=== PATIENT | male | born 1955 | race Caucasian/White ===

== ENCOUNTER 2022-08-11 11:12 | Outpatient (REF) | payer SELFPAY ==
[2022-08-11 11:31] LABS: MANUAL DIFF FLAG NO
[2022-08-11 11:34] LABS: Basophils Percent Auto 0.3 % (0-2); Eosinophils Absolute Auto 0.1 X10*3/uL (0.0-0.4); Eosinophils Percent Auto 1.2 % (0-4); Hemoglobin 15.4 g/dl (14.0-18.0); Imm Gran Abs Auto 0.04 X10*3/uL (0.00-0.03); Imm Gran Pct Auto 0.3 % (0.0-0.4); Lymphocytes Absolute Auto 1.5 X10*3/uL (1.2-4.9); Lymphocytes Percent Auto 12.5 % (20-40); Mean Corpuscular HGB Conc 33.5 g/dl (31.0-36.0); Mean Corpuscular Hemoglobin 30.9 pg (27.0-33.0); Mean Corpuscular Volume 92.4 fL (80.0-98.0); Mean Platelet Volume 11.3 fL (9.4-12.4); Monocytes Absolute Auto 1.1 X10*3/uL (0.1-1.2); Monocytes Percent Auto 9.6 % (2-11); Neutrophils Absolute Auto 9.1 x10*3/uL (2.0-8.3); Neutrophils Percent Auto 76.1 % (45-73); Platelet Count 295 X10*3/uL (160-400); Red Blood Count 4.98 X10*6/uL (4.60-5.80); Red Cell Distribution Width 12.5 % (11.0-16.0); White Blood Count 11.9 X10*3/uL (4.8-10.8)
[2022-08-11 11:52] LABS: Estimated Average Glucose 103 mg/dL; Hemoglobin A1c % 5.2 %
[2022-08-11 11:56] LABS: Alanine Aminotransferase 19 U/L (0-40); Albumin Level 4.4 g/dL (3.5-5.0); Alkaline Phosphatase 76 U/L (39-117); Anion Gap 17 (12-20); Aspartate Amino Transferase 23 U/L (5-37); Bilirubin Total 0.5 mg/dL (0.0-1.0); Blood Urea Nitrogen 14 mg/dL (9-16); Calcium 9.8 mg/dL (8.4-10.2); Carbon Dioxide 24 mmol/L (22-29); Chloride 101 mmol/L (96-108); Cholesterol 209 mg/dL; Estimated Glomerular Filt Rate > 60; Glucose Fasting 111 mg/dL (60-99); HDL Cholesterol 49 mg/dL; LDL Cholesterol Calculated 147 mg/dl; Potassium 4.7 mmol/L (3.3-5.1); Sodium 137 mmol/L (135-145); Total Protein 7.3 g/dL (6.5-8.0); Triglycerides 65 mg/dL
[2022-08-11 12:08] LABS: PSA,Total (Free>4and<10) 0.24 ng/mL (0.00-4.00)
[2022-08-11 12:40] LABS: Appearance Urine Clear; Color Urine Yellow; Glucose Urine UA Negative (Negative); Leukocyte Esterase Urine Negative (Negative); Nitrite Urine Negative (Negative); PH 5.5 (5.0-9.0); Urine Blood Negative (Negative); Urine Ketones Negative (Negative); Urine Protein Negative (Neg-Trace)
[2022-08-11 12:47] LABS: Creatinine Urine 128.86 mg/dL; Microalbumin Urine < 5.0 mg/L
[2022-08-11 13:23] LABS: RBC Urine 0-2 /HPF (0-2); Squamous Epithelial Cell Urine 0-2 /HPF (0-2); WBC Urine 0-5 /HPF (0-5)
[2022-08-11 13:24] LABS: Bacteria Urine None Seen (None Seen); Hyaline Casts Urine 0-2 /LPF (0-2)
== END 2022-08-11 11:13 | disposition home or self-care (01) ==
LOC: HO.LNP 11:12
PROVIDERS: Visit Provider Internal Medicine
DX: Z00.00 Encounter for general adult medical examination without abnormal findings (principal); R73.03 Prediabetes; Z12.5 Encounter for screening for malignant neoplasm of prostate
CPT/HCPCS: 80053; 80061; 81001; 82043; 83036; 84153; 85025

== ENCOUNTER 2023-08-17 10:35 | Outpatient (REF) | payer SELFPAY ==
[2023-08-17 10:41] LABS: MANUAL DIFF FLAG NO
[2023-08-17 11:01] LABS: Basophils Percent Auto 0.6 % (0-2); Eosinophils Absolute Auto 0.1 X10*3/uL (0.0-0.4); Eosinophils Percent Auto 1.9 % (0-4); Hematocrit 46.7 % (42.0-52.0); Hemoglobin 15.6 g/dl (14.0-18.0); Imm Gran Abs Auto 0.02 X10*3/uL (0.00-0.03); Imm Gran Pct Auto 0.3 % (0.0-0.4); Lymphocytes Absolute Auto 1.8 X10*3/uL (1.2-4.9); Lymphocytes Percent Auto 26.5 % (20-40); Mean Corpuscular HGB Conc 33.4 g/dl (31.0-36.0); Mean Corpuscular Hemoglobin 31.2 pg (27.0-33.0); Mean Corpuscular Volume 93.4 fL (80.0-98.0); Monocytes Absolute Auto 0.8 X10*3/uL (0.1-1.2); Monocytes Percent Auto 11.1 % (2-11); Neutrophils Absolute Auto 4.1 x10*3/uL (2.0-8.3); Neutrophils Percent Auto 59.6 % (45-73); Platelet Count 232 X10*3/uL (160-400); White Blood Count 6.9 X10*3/uL (4.8-10.8)
[2023-08-17 11:11] LABS: Appearance Urine Clear; Color Urine Yellow; Glucose Urine UA Negative (Negative); Leukocyte Esterase Urine Negative (Negative); Nitrite Urine Negative (Negative); PH 5.5 (5.0-9.0); Specific Gravity - Urine 1.015 (1.005-1.025); Urine Blood Negative (Negative); Urine Ketones Negative (Negative); Urine Protein Negative (Neg-Trace)
[2023-08-17 11:15] LABS: Estimated Average Glucose 108 mg/dL; Hemoglobin A1c % 5.4 % (<6.0)
[2023-08-17 11:17] LABS: Bacteria Urine None Seen (None Seen); Hyaline Casts Urine 0-2 /LPF (0-2); RBC Urine 0-2 /HPF (0-2); Squamous Epithelial Cell Urine 0-2 /HPF (0-2); WBC Urine 0-5 /HPF (0-5)
[2023-08-17 11:45] LABS: Alanine Aminotransferase 18 U/L (0-40); Albumin Level 4.4 g/dL (3.5-5.0); Alkaline Phosphatase 68 U/L (39-117); Anion Gap 12 (12-20); Aspartate Amino Transferase 25 U/L (5-37); Bilirubin Total 0.7 mg/dL (0.0-1.0); Blood Urea Nitrogen 15 mg/dL (9-16); Calcium 9.5 mg/dL (8.4-10.2); Carbon Dioxide 27 mmol/L (22-29); Chloride 104 mmol/L (96-108); Cholesterol 212 mg/dL (<200); Estimated Glomerular Filt Rate > 60; Glucose Random 110 mg/dL (60-115); HDL Cholesterol 58 mg/dL (>40); LDL Cholesterol Calculated 140 mg/dL (<100); Potassium 4.5 mmol/L (3.3-5.1); Sodium 138 mmol/L (135-145); Total Protein 7.4 g/dL (6.5-8.0); Triglycerides 70 mg/dL (<150)
[2023-08-17 11:46] LABS: PSA,Total (Free>4and<10) 0.16 ng/mL (0.00-4.00)
[2023-08-17 12:07] LABS: Creatinine Urine 106.62 mg/dL; Microalbumin Urine < 5.0 mg/L
== END 2023-08-17 10:36 | disposition home or self-care (01) ==
LOC: HO.LNP 10:35
PROVIDERS: Visit Provider Internal Medicine
DX: Z00.00 Encounter for general adult medical examination without abnormal findings (principal); R73.03 Prediabetes; Z12.5 Encounter for screening for malignant neoplasm of prostate
CPT/HCPCS: 80053; 80061; 81001; 82043; 82570; 83036; 84153; 85025

== ENCOUNTER 2024-11-15 11:37 | Outpatient (REF) | payer SELFPAY ==
[2024-11-15 11:48] LABS: MANUAL DIFF FLAG NO
[2024-11-15 12:00] LABS: Basophils Percent Auto 0.5 % (0-2); Eosinophils Absolute Auto 0.2 X10*3/uL (0.0-0.4); Eosinophils Percent Auto 1.8 % (0-4); Hematocrit 47.2 % (42.0-52.0); Hemoglobin 15.3 g/dl (14.0-18.0); Imm Gran Abs Auto 0.04 X10*3/uL (0.00-0.03); Imm Gran Pct Auto 0.5 % (0.0-0.4); Lymphocytes Absolute Auto 1.7 X10*3/uL (1.2-4.9); Lymphocytes Percent Auto 20.3 % (20-40); Mean Corpuscular HGB Conc 32.4 g/dl (31.0-36.0); Mean Corpuscular Hemoglobin 30.7 pg (27.0-33.0); Mean Corpuscular Volume 94.6 fL (80.0-98.0); Mean Platelet Volume 10.9 fL (9.4-12.4); Monocytes Absolute Auto 0.9 X10*3/uL (0.1-1.2); Neutrophils Absolute Auto 5.7 x10*3/uL (2.0-8.3); Neutrophils Percent Auto 66.9 % (45-73); Platelet Count 251 X10*3/uL (160-400); Red Blood Count 4.99 X10*6/uL (4.60-5.80); Red Cell Distribution Width 13.2 % (11.0-16.0); White Blood Count 8.5 X10*3/uL (4.8-10.8)
[2024-11-15 12:04] LABS: Appearance Urine Clear; Color Urine Yellow; Glucose Urine UA Negative (Negative); Leukocyte Esterase Urine Negative (Negative); Nitrite Urine Negative (Negative); PH 5.5 (5.0-9.0); Urine Blood Negative (Negative); Urine Ketones Negative (Negative); Urine Protein Negative (Neg-Trace)
[2024-11-15 12:12] LABS: Bacteria Urine None Seen (None Seen); Hyaline Casts Urine 0-2 /LPF (0-2); RBC Urine 0-2 /HPF (0-2); Squamous Epithelial Cell Urine 0-2 /HPF (0-2); WBC Urine 0-5 /HPF (0-5)
[2024-11-15 12:22] LABS: Estimated Average Glucose 111 mg/dL; Hemoglobin A1C 146.2566 umol/L; Hemoglobin A1c % 5.5 % (<6.0)
[2024-11-15 12:38] LABS: Alanine Aminotransferase 29 U/L (0-40); Albumin Level 4.2 g/dL (3.5-5.0); Alkaline Phosphatase 67 U/L (39-117); Anion Gap 12 (12-20); Aspartate Amino Transferase 31 U/L (5-37); Bilirubin Total 0.6 mg/dL (0.0-1.0); Blood Urea Nitrogen 17 mg/dL (9-16); Calcium 9.2 mg/dL (8.4-10.2); Carbon Dioxide 27 mmol/L (22-29); Chloride 106 mmol/L (96-108); Cholesterol 181 mg/dL (<200); Estimated Glomerular Filt Rate > 60; Glucose Fasting 113 mg/dL (60-99); HDL Cholesterol 59 mg/dL (>40); LDL Cholesterol Calculated 106 mg/dL (<100); Potassium 4.7 mmol/L (3.3-5.1); Sodium 140 mmol/L (135-145); Total Protein 7.5 g/dL (6.5-8.0); Triglycerides 84 mg/dL (<150)
[2024-11-15 12:39] LABS: PSA,Total (Free>4and<10) 0.33 ng/mL (0.00-4.00)
--- OUTSIDE RECORDS SUMMARY | 2024-11-15 12:51 | XMS_ITS | Patient Health Record ---
Author Organization David Petersen MD Address [address] [place], [place] [id number] Care Team Providers Care Bariatric Surgeon Name Role Phone David Petersen Primary Care Provider Allergies No Known Allergies Results Component Value Reference Range Notes Comprehensive [place]. Panel Fa st (Not yet reviewed by provider) Interpretation: Performing Lab:[facility], [address] [place] [phone] Notes/Report: Sodium 140 135-145 mmol/L Potassium 4.7 3.3-5.1 mmol/L Chloride 106 96-108 mmol/L Carbon Dioxide 27 22-29 mmol/L Anion Gap 12 12-20 Blood Urea Nitrogen 17 9-16 mg/dL Creatinine 0.88 0.5-1.4 mg/dL Estimated Glomerular Filt Rate > 60 Chronic Kidney Disease: Estimated GFR < 60 mL/min/1.73m2 Severe Kidney Disease: Estimated GFR < 15 mL/min/1.73m2 Glucose Fasting 113 60-99 mg/dL A fasting glucose from 100-125 mg/dl is considered impaired (pre-diabetes). Calcium 9.2 8.4-10.2 mg/dL Bilirubin Total 0.6 0.0-1.0 mg/dL Aspartate Amino Transferase 31 5-37 U/L Alanine Aminotransferase 29 0-40 U/L Total Protein 7.5 6.5-8.0 g/dL Albumin Level 4.2 3.5-5.0 g/dL Alkaline Phosphatase 67 39-117 U/L Complete Blood Count Auto Di ff Reviewed date:11/15/2024 12:37:02 PM Interpretation: Performing Lab:[facility], [address] [place] [phone] Notes/Report: White Blood Count 8.5 4.8-10.8 X10*3/uL Red Blood Count 4.99 4.60-5.80 X10*6/uL Hemoglobin 15.3 14.0-18.0 g/dl Hematocrit 47.2 42.0-52.0 % Mean Corpuscular Volume 94.6 80.0-98.0 fL Mean Corpuscular Hemoglobin 30.7 27.0-33.0 pg Mean Corpuscular HGB Conc 32.4 31.0-36.0 g/dl Red Cell Distribution Width 13.2 11.0-16.0 % Platelet Count 251 160-400 X10*3/uL Mean Platelet Volume 10.9 9.4-12.4 fL Neutrophils Percent Auto 66.9 45-73 % Imm Gran Pct Auto 0.5 0.0-0.4 % Lymphocytes Percent Auto 20.3 20-40 % Monocytes Percent Auto 10.0 2-11 % Eosinophils Percent Auto 1.8 0-4 % Basophils Percent Auto 0.5 0-2 % NRBC Pct Auto 0.0 0.0-0.2 /100WBC Neutrophils Absolute Auto 5.7 2.0-8.3 x10*3/u L Imm Gran Abs Auto 0.04 0.00-0.03 X10*3/uL Lymphocytes Absolute Auto 1.7 1.2-4.9 X10*3/u L Monocytes Absolute Auto 0.9 0.1-1.2 X10*3/uL Eosinophils Absolute Auto 0.2 0.0-0.4 X10*3/u L Basophils Absolute Auto 0.0 0.0-0.2 X10*3/uL NRBC Abs Auto 0.000 0.0-0.012 X10*3/uL Lipid Panel Reviewed date:11/15/2024 12:44:18 PM Interpretation: Performing Lab:[facility], [address] [place] [phone] Notes/Report: Triglycerides 84 <150 mg/dL Desirable Triglyceride: less than 150 mg/dL Borderline High Triglyceride 150-199 mg/dL High Triglyceride: 200-499 mg/dL Very High Triglyceride: greater than or equal to 5OO mg/dL Cholesterol 181 <200 mg/dL Desirable Cholesterol: less than 200 mg/dL Borderline High Cholesterol: 200-239 mg/dL High Cholesterol: greater than 239 mg/dL LDL Cholesterol Calculated 106 <100 mg/dL Desirable LDL: less than 100 mg/dL Near Optimal/Above Optimal LDL: 110-129 mg/dL Borderline High LDL: 130-159 mg/dL High LDL: 160-189 mg/dL Very High LDL: greater than or equal to 190 mg/dL HDL Cholesterol 59 >40 mg/dL Desirable HDL: greater than 40 mg/dL Note: This HDL assay may give artificially low results in patients with liver disease. PSA,Total (Free>4and<10) Reviewed date:11/15/2024 12:44:09 PM Interpretation: Performing Lab:[address] [phone] Notes/Report: PSA,Total (Free>4and<10) 0.33 0.00-4.00 ng/mL A Free PSA was not performed: The percentage of Free PSA can be used to enhance the differentiation of prostate cancer from benign prostatic disease in subjects whose PSA levels are between 4.0 and 10.0 ng/mL. For subjects whose PSA levels are below 4.0 or above 10.0 ng/mL, the risk of prostate cancer is determined on the basis of the PSA alone. Therefore the % Free PSA is recommended only for those subjects whose PSA levels are between 4.0 and 10.0 ng/mL. PSA methodology: Chavez Alinity i Chemiluminescent Microparticle Immunoassay (CMIA) Hemoglobin A1c Reviewed date:11/15/2024 12:36:44 PM Interpretation: Performing Lab:[address] [phone] Notes/Report: Hemoglobin A1c % 5.5 <6.0 % Hemoglobin A1C Reference Range Adults: 4.8 - 6.0 % Non diabetic: < 6.0 % Goal: < 7.0 % Additional Action Suggested: > 8.0 % Note: Hemoglobin A1c results are invalid for patients with abnormal amounts of HbF. Blood transfusions may impact the HbA1c concentration in the patient sample. Estimated Average Glucose 111 eAG = Estimated average glucose which is %A1C expressed as average glucose, using the formula of the X9T-Swjfczi Average Glucose study (ADAG), Diabetes Care, Vol.31,#8, Apr. 2007 UA ClnCatch+Micro w/rflx Cul t Reviewed date:11/15/2024 12:37:32 PM Interpretation: Performing Lab:[facility], [address] [place] [address], [place] [phone] Notes/Report: Urine, Clean Catch Color Urine Yellow Appearance Urine Clear PH 5.5 5.0-9.0 Glucose Urine UA Negative Negative mg/dL Urine Blood Negative Negative Specific [place] - Urine 1.020 1.005-1.025 Urine Protein Negative Neg-Trace mg/dL Urine Ketones Negative Negative mg/dL Nitrite Urine Negative Negative Leukocyte Esterase Urine Negative Negative RBC Urine 0-2 0-2 /HPF WBC Urine 0-5 0-5 /HPF Squamous Epithelial Cell Urine 0-2 0-2 /HPF Bacteria Urine None Seen None Seen Hyaline Casts Urine 0-2 0-2 /LPF Reason For Referral No Information Medications Medication SIG (Take, Route, Fr equency, Duration) Notes Start Date End Date Status Diflucan 150 MG 1 tablet Orally once a day for 10 day(s) 12/05/2021 Not-Taking Immunizations Vaccine Route Administration Date Status Comme nts Fluarix Quadrivalent IM Intramuscular 11/03/2019 Administe red SARS-COV-2 Pfizer Unknown 11/21/2020 Administered SARS-COV-2 Pfizer Unknown 12/12/2020 Administered SARS-COV-2 Pfizer Unknown 07/04/2021 Administered Fluarix Quadrivalent Unknown 09/11/2021 Administered Influenza High Dose Unknown 07/23/2022 Administered DECLINED, FLU Unknown 06/26/2014 Refused Flu Vaccine Unknown 06/29/2015 Refused Flu Vaccine Unknown 07/23/2015 Refused Flu Vaccine Unknown 08/05/2016 Refused Fluarix Quadrivalent Unknown 08/24/2017 Refused TDaP Unknown 08/31/2017 Refused PPSV23 (Pnemovax) Unknown 08/31/2017 Refused PPSV23 (Pnemovax) Unknown 01/17/2019 Refused Social History Tobacco Use: Social History Observation Description Date Details (start date - stop date) Former Smoker NA - NA Tobacco Use/Smoking Question Answer Notes Patient is a former smoker How long has it been since y ou last smoked? > 10 years Additional Findings: Tobacco Non-User Cu rrent non-smoker, currently using no form of tobacco Alcohol Screen Question Answer Notes Did you have a drink contain ing alcohol in the past year? Yes How often did you have a dri nk containing alcohol in the past year? Monthly or less (1 point) How many drinks did you have on a typical day when you were drinking in the past year? 1 or 2 drinks (0 point) How often did you have 6 or more drinks on one occasion in the past year? 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 Panel Fast 5 Microalbumin, Random 11/15/2024 Next Appt Details Provider Name:David Villafana ieluis, 11/21/2024 10:30:00 AM, [address] [place] [address], Suite [facility], [place], [place], [phone], Insurance Providers Payer Name Payer Address Payer Phone Subscriber Number Group Number Insured Name Patient Relationship to Insured Coverage Start Date Coverage End Date [employer] - [employer] [address] [address] [place] [address] [id number] Nathaniel Minaya Self - patient is the insured [facility] [employer] FORMERLY [facility], [facility] CLAIM [facility] [address] [place] [address] [id number] Nathaniel Minaya Self - patient is the insured Medical (General) History Medical History History ICD Code still with autographia still refuses colonoscopy ; colonoscopy done 10/17/15 - repeat 1 year (Dr. Dulce Maria Barajas)done in 2016 with sessile. Colonoscopy 05/14/22 needs repeat colonoscopy in 3 year had a sessile polyp had colonoscopy 11/06/16 repea t 5 years had tubular adenoma 30 mm sessile high grade dysplasia 2021. doctor wants repeat in 6 . colonoscopy 05/14/22 repeat in one year Due for Carotid US but refuses (01/17/19)
--- OUTSIDE RECORDS SUMMARY | 2024-11-15 12:52 | XMS_ITS ---
Author Organization David Petersen MD Address [address] [place] [phone] Care Team Providers Care Warehouse Picker Name Role Phone David Petersen Primary Care Provider REASON FOR VISIT follow up appt Encounters Encounter Location Date Provider Diagnosis David Petersen MD [address] [place] [address] [place] [phone] 11/17/2023 David Petersen Plan Of Treatment Next Appt Details Provider Name:David Villafana ier, 11/21/2024 10:30:00 AM, [address] [facility], Suite [facility], [place], [place], [phone], Progress Notes * Nathaniel SCALESDOB:1955 (69 yo M)Acc No.[id number]:11/17/2023 Progress Notes Patient:?Nathaniel SCALES Provider:?David Petersen MD :1955???Age:68 Y???Sex:Male Haseeb e:11/17/2023 Address:[address] [place] [address] Subjective: * Chief Complaints: * ???1. Follow up appt. * Medical History:? Objective: * Vitals:? Assessment: Plan: * Treatment: * * The named appointment provid er may or may not be the originator of this progress note, and it is not deemed complete until electronically signed by the appointment provider. Sign off status: Pending * Provider:?David Petersen MD Date:?0 11/17/2023 Generated for Agustina elliott/Han/Rachel on:?11/15/2024 12:51 PM EST
--- OUTSIDE RECORDS SUMMARY | 2024-11-15 12:52 | XMS_ITS ---
Author Organization David Petersen MD Address [address] [place], [place] [phone] Care Team Providers Care Wharf Tender Head Name Role Phone David Petersen Primary Care Provider [phone] Results Component Value Reference Range Notes Comprehensive [place]. Panel Fa st (Not yet reviewed by provider) Interpretation: Performing Lab:[facility], [address] [place] [phone] Notes/Report: Sodium 140 135-145 mmol/L Potassium 4.7 [...] ff Reviewed date:11/15/2024 12:37:02 PM Interpretation: Performing Lab:[facility], [address] [place] [phone] Notes/Report: White Blood Count 8.5 4.8-10.8 X10*3/uL [...] Panel Reviewed date:11/15/2024 12:44:18 PM Interpretation: Performing Lab:[facility], [address] [place] [phone] Notes/Report: Triglycerides 84 <150 mg/dL Desirable Triglyceride: [...] (Free>4and<10) Reviewed date:11/15/2024 12:44:09 PM Interpretation: Performing Lab:[address] [phone] Notes/Report: PSA,Total (Free>4and<10) 0.33 0.00-4.00 ng/mL A [...] A1c Reviewed date:11/15/2024 12:36:44 PM Interpretation: Performing Lab:[address] [phone] Notes/Report: Hemoglobin A1c % 5.5 <6.0 % [...] average glucose, using the formula of the L7M-Ozdatsb Average Glucose study (ADAG), Diabetes Care, Vol.31,#8, Apr. 2007 UA ClnCatch+Micro w/rflx Cul t Reviewed date:11/15/2024 12:37:32 PM Interpretation: Performing Lab:[facility], [address] [place] [phone] Notes/Report: Urine, Clean Catch Color Urine Yellow Appearance Urine Clear PH 5.5 5.0-9.0 Glucose Urine UA Negative Negative mg/dL Urine Blood Negative Negative Specific [place] - Urine 1.020 1.005-1.025 Urine Protein Negative Neg-Trace mg/dL Urine Ketones Negative Negative mg/dL Nitrite Urine Negative Negative Leukocyte Esterase Urine Negative Negative RBC Urine 0-2 0-2 /HPF WBC Urine 0-5 0-5 /HPF Squamous Epithelial Cell Urine 0-2 0-2 /HPF Bacteria Urine None Seen None Seen Hyaline Casts Urine 0-2 0-2 /LPF REASON FOR VISIT yearly fasting labs Encounters Encounter Location Date Provider Diagnosis David Petersen MD [address] [place] [phone] 11/15/2024 David Petersen Blood tests for routine general physical examination Z00.00 and Prediabetes R73.03 Assessments Encounter Date Diagnosis (ICD Code) Assessment Notes Treatment Notes Treatment Clinical Notes Section Notes 11/15/2024 Blood tests for routine general physical examination (ICD-10 - Z00.00) 11/15/2024 Prediabetes (ICD-10 - R73.03) Plan Of Treatment Pending Test Test Name Order Date Comprehensive [place]. Panel Fast Microalbumin, Random 11/15/2024 Next Appt Details Provider Name:David Villafana ier, 11/21/2024 10:30:00 AM, [address] [place] [address], Suite [facility], [place], [place], [phone], Progress Notes * SCALESNathanielDOB:1955 (69 yo M)Acc No.[id number]:11/15/2024 Progress Note Patient:?Nathaniel SCALES Provider:?David Petersen MD :1955???Age:69 Y???Sex:Male Haseeb e:11/15/2024 Address:[address] [place], [place] [phone] Subjective: * Chief Complaints: * ???1. Yearly fasting labs. * Medical History:? Objective: * Vitals:? Assessment: * Assessment: 1.?Blood tests for routine g eneral physical examination - Z00.00 (Primary)???2.?Prediabetes - R73.03??? Plan: * Treatment: 2.?Prediabetes?LAB: Comprehensive [place]. Panel Fast (Collection Date & Time - 11/15/2024 07:30 AM) ?LAB: Microalbumin, Random ?LAB: Complete Blood Count Auto Diff (Collection Date & Time - 11/15/2024 07:30 AM) ?LAB: Lipid Panel (Collection Date & Time - 11/15/2024 07:30 AM) ?LAB: PSA,Total (Free>4and<10) (Collection Date & Time - 11/15/2024 07:30 AM) ?LAB: Hemoglobin A1c (Collection Date & Time - 11/15/2024 07:30 AM) ?LAB: UA ClnCatch+Micro w/rflx Cult (Collection Date & Time - 11/15/2024 07:30 AM) * Procedure Codes:?25522 VENIP UNCT, ROUTINE* * * The named appointment provid er may or may not be the originator of this progress note, and it is not deemed complete until electronically signed by the appointment provider. Sign off status: Pending * Provider:?David Petersen MD Date:?0 11/15/2024 Generated for Agustina elliott/Han/eTransmitting on:?11/15/2024 12:51 PM EST
--- OUTSIDE RECORDS SUMMARY | 2024-11-15 12:52 | XMS_ITS ---
Author Organization David Petersen MD Address [address] [place] [phone] Care Team Providers Care Zigzag Appliquer Name Role Phone David Petersen Primary Care Provider [phone] Allergies No Known Allergies REASON FOR VISIT COMP EXAM, No Covid symptoms Medications Medication SIG (Take, Route, Fr equency, Duration) Notes Start Date End Date Status Diflucan 150 MG 1 tablet Orally once a day for 10 day(s) 12/05/2021 Not-Taking Social History Tobacco Use: Social History Observation [...] Never (0 point) Points 1 Interpretation Negative Vital Signs Blood pressure systolic 138 mm Hg 08/24/20 23 Blood pressure diastolic 82 mm Hg 023 Height 70 in 08/24/2023 Weight 201 lbs 08/24/2023 BMI 28.84 kg/m2 08/24/2023 weight is up 2 pounds since 08-18-22 Encounters Encounter Location Date Provider Diagnosis David Petersen MD [address] [place], [place] [id number] 08/24/2023 David Petersen Tubular adenoma D36. 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) needs colonoscopy 202408/24/2023 Prediabetes (ICD-10 - R73.03) stable, no need for medicatio at this time 08/24/2023 Depression screening (ICD-10 - Z13.31) negative screen Plan Of Treatment Treatment Notes Assessment Notes Tubular adenoma stable, followed by GI; labs reviewed and discussed with patient Adenocarcinoma in situ in tubular adenom a needs colonoscopy 2024 Prediabetes stable, no need for medicatio at this time Depression screening negative screen Next Appt Details Follow Up: oct 2024 after , Reason: Provider Name:David Villafana ier, 11/21/2024 10:30:00 AM, [address] [place] [address], [address], [place], [place], [phone], Progress Notes * Nathaniel SCALESDOB:1955 (68 yo M)Acc No.[id number]:08/24/2023 Patient:?Nathaniel Scales Provider:?David Petersen MD :1955???Age:68 Y???Sex:Male Haseeb e:08/24/2023 Address:[address] [place], [place] [phone] Subjective: * Chief Complaints: * ???COMP EXAMNo Covid symptom s * HPI: ???Depression Screening:?PHQ-9?Little interest or pleasure in doing things?Not at all,?Feeling down, depressed, or hopeless?Not at all,?Trouble falling or staying asleep, or sleeping too much?Not at all,?Feeling tired or having little energy?Not at all,?Poor appetite or overeating?Not at all,?Feeling bad about yourself or that you are a failure, or have let yourself or your family down?Not at all,?Trouble concentrating on things, such as reading the newspaper or watching television?Not at all,?Moving or speaking so slowly that other people could have noticed; or the opposite, being so fidgety or restless that you have been moving around a lot more than usual?Not at all,?Thoughts that you would be better off or of hurting yourself in some way?Not at all,?Total Score?0.?Interpretation and Intervention?Depression Screening Findings?Negative,?Follow-Up for Depression?: review of PHQ-9 found negative result, no follow-up needed.?Communication Needs:?Communication Needs?Does the patient have a hearing impairment?Yes,?If yes, what is the hearing impairment??Hard of hearing, Hearing Aids,?Does the patient have a vision impairment??Yes,?If yes, what is the vision impairment??Glasses,?Does the patient have a cognition impairment??No.?SDOH Questions:?SDOH Questions?In the past year have you been worried about losing housing??No,?In the past year have you or any family members you live with been unable to get any of the following when it was really needed? Check all that apply:?None.?Fall Risk:?History?Have you had any falls with injury in the past year??No,?Have you had two or more falls in the past year??No.?Symptom(s):? patient is a 68 yo male here for annual visit with neri of recent labs abd follow up of chronic issues. * ROS:?General/Constitutional:?Patient denies?fatigue , headache.?Change in appetite?denies.?Chills?denies.?Fever?denies.?Ophthalmologic:?Blurred vision?denies.?Discharge?denies.?Pain?denies.?ENT:?Patient denies?decreased sense of smell , any loss of taste , sore throat.?Decreased hearing?denies.?Sore throat?denies.?Swollen glands?denies.?Endocrine:?Cold intolerance?denies.?Excessive thirst?denies.?Heat intolerance?denies.?Weight loss?denies.?Respiratory:?Cough?denies.?Shortness of breath at rest?denies.?Shortness of breath with exertion?denies.?Wheezing?denies.?Cardiovascular:?Chest pain at rest?denies.?Chest pain with exertion?denies.?Irregular heartbeat?denies.?Shortness of breath?denies.?Gastrointestinal:?Abdominal pain?denies.?Change in bowel habits?denies.?Diarrhea?denies.?Nausea?denies.?Rectal bleeding?denies.?Vomiting?denies .?Genitourinary:?Blood in urine?denies.?Difficulty urinating?denies.?Frequent urination?denies.?Musculoskeletal:?Patient denies?muscle aches.?Painful joints?denies.?Weakness?denies.?Peripheral Vascular:?Patient denies?red and blue toes.?Skin:?Dry skin?denies.?Itching?denies.?Denies?Mole(s),? changes in moles, new moles or any lesions of concern.?Denies?Photosensitivity.?Rash?denies.?Neurologic:?Dizziness?denies.?Fainting?denies.?Headache?denies.? * Medical History:? * Surgical History:? * Hospitalization/Major Diagno stic Procedure:? * Family History:?Father: dece ased 82 yrs.?Mother: 82 yrs.?3 brother(s) , 1 sister(s) . 1 son(s) , 2 daughter(s) . .? Father- Old Age Mother-Old Age, Denies mental health/substance abuse family history. * Social History:?Tobacco Use:?Tobacco Use/Smoking?Patient is a?former smoker,?How long has it been since you last smoked??> 10 years,?Additional Findings: Tobacco Non-User?Current non-smoker, currently using no form of tobacco.?Drugs/Alcohol:?Alcohol Screen?Did you have a drink containing alcohol in the past year??Yes,?How often did you have a drink containing alcohol in the past year??Monthly or less (1 point),?How many drinks did you have on a typical day when you were drinking in the past year??1 or 2 drinks (0 point),?How often did you have 6 or more drinks on one occasion in the past year??Never (0 point),?Points?1,?Interpretation?Negative.?Miscellaneous:?Caffeine: yes, frequency:, 2-3 cups per day. Children: yes. no Community involvements. Exercise: yes, walks 4 miles 3 times a week and lifts weights. Home smoke detector use: yes. Housing: owning. Living with: spouse. Marital status: . Occupation: works full-time. Pets: cats: dogs:2 cats. no Travel outside of the [place]. * Medications:?Not-Taking/PRND iflucan 150 MG Tablet 1 tablet Orally once a dayMedication List reviewed and reconciled with the patientNot-Taking/PRN Diflucan 150 MG Tablet 1 tablet Orally once a dayMedication List reviewed and reconciled with the patient * Allergies:?N.K.D.A.yes[Aller gies Verified] Objective: * Vitals:?Ht: 70, Wt:201, BMI: 28.84, BP:138/82 weight is up 2 pounds since 08-18-22. * ???Past Orders: ???Lab:Complete Blood Count Auto Diff (Order Date - 08/17/2023) (Collection Date - 08/17/2023) ? Value Reference Range ?White Blood Count 6.9 4. 8-10.8 - X10*3/uL ?Red Blood Count 5.00 4.60 -5.80 - X10*6/uL ?Hemoglobin 15.6 14.0-18.0 - g/dl ?Hematocrit 46.7 42.0-52.0 - % ?Mean Corpuscular Volume 93.4 80.0-98.0 - fL ?Mean Corpuscular Hemoglobin 31.2 27.0-33.0 - pg ?Mean Corpuscular HGB Conc 33.4 31.0-36.0 - g/dl ?Red Cell Distribution Width 13.0 11.0-16.0 - % ?Platelet Count 232 160-4 00 - X10*3/uL ?Mean Platelet Volume 11.0 9.4-12.4 - fL ?Neutrophils Percent Auto 59.6 45-73 - % ?Imm Gran Pct Auto 0.3 0. 0-0.4 - % ?Lymphocytes Percent Auto 26.5 20-40 - % ?Monocytes Percent Auto 11.1 H 2-11 - % ?Eosinophils Percent Auto 1.9 0-4 - % ?Basophils Percent Auto 0.6 0-2 - % ?NRBC Pct Auto 0.0 0.0-0. 2 - /100WBC ?Neutrophils Absolute Auto 4.1 2.0-8.3 - x10*3/uL ?Imm Gran Abs Auto 0.02 0. 00-0.03 - X10*3/uL ?Lymphocytes Absolute Auto 1.8 1.2-4.9 - X10*3/uL ?Monocytes Absolute Auto 0.8 0.1-1.2 - X10*3/uL ?Eosinophils Absolute Auto 0.1 0.0-0.4 - X10*3/uL ?Basophils Absolute Auto 0.0 0.0-0.2 - X10*3/uL ?NRBC Abs Auto 0.000 0.0-0. 012 - X10*3/uL ???Lab:Comprehensive Met. Kam little (Order Date - 08/17/2023) (Collection Date - 08/17/2023) ? Value Reference Range ?Sodium 138 135-145 - mmo l/L ?Bilirubin Total 0.7 0.0- 1.0 - mg/dL ?Aspartate Amino Transferase 25 5-37 - U/L ?Alanine Aminotransferase 18 0-40 - U/L ?Total Protein 7.4 6.5-8. 0 - g/dL ?Albumin Level 4.4 3.5-5. 0 - g/dL ?Alkaline Phosphatase 68 39-117 - U/L ?Potassium 4.5 3.3-5.1 - mmol/L ?Chloride 104 96-108 - mm ol/L ?Carbon Dioxide 27 22-29 - mmol/L ?Anion Gap 12 12-20 - ?Blood Urea Nitrogen 15 9-16 - mg/dL ?Creatinine 0.86 0.5-1.4 - mg/dL ?Estimated Glomerular Filt Rate > 60 - ?Glucose Random 110 60-11 5 - mg/dL ?Calcium 9.5 8.4-10.2 - m g/dL ???Lab:Lipid Panel (Order Da te - 08/17/2023) (Collection Date - 08/17/2023) ? Value Reference Range ?Triglycerides 70 <150 - mg/dL ?Cholesterol 212 H <200 - m g/dL ?LDL Cholesterol Calculated 140 H <100 - mg/dL ?HDL Cholesterol 58 >40 - mg/dL ???Lab:PSA,Total (Free>4and< 10) (Order Date - 08/17/2023) (Collection Date - 08/17/2023) ? Value Reference Range ?PSA,Total (Free>4and<10) 0.16 0.00-4.00 - ng/mL ???Lab:Microalbumin, Random (Order Date - 08/17/2023) (Collection Date - 08/17/2023) ? Value Reference Range ?Creatinine Urine 106.62 - m g/dL ?Microalbumin Urine < 5.0 - mg/L ?Microalbum Creatinine Ratio Ur TNP <30 - ug/mg cr ???Lab:Hemoglobin A1c (Order Date - 08/17/2023) (Collection Date - 08/17/2023) ? Value Reference Range ?Hemoglobin A1c % 5.4 <6. 0 - % ?Estimated Average Glucose 108 - mg/dL ???Lab:UA ClnCatch+Micro w/r flx Cult (Order Date - 08/17/2023) (Collection Date - 08/17/2023) ? Value Reference Range ?Color Urine Yellow - ?Appearance Urine Clear - ?PH 5.5 5.0-9.0 - ?Glucose Urine UA Negative Neg ative - mg/dL ?Urine Blood Negative Negative - ?Specific [place] - Urine 1.015 1.005-1.025 - ?Urine Protein Negative Neg-Tr yamilex - mg/dL ?Urine Ketones Negative Negati ve - mg/dL ?Nitrite Urine Negative Negati ve - ?Leukocyte Esterase Urine Negative Negative - ?RBC Urine 0-2 0-2 - /HPF ?WBC Urine 0-5 0-5 - /HPF ?Squamous Epithelial Cell Urine 0-2 0-2 - /HPF ?Bacteria Urine None Seen None Seen - ?Hyaline Casts Urine 0-2 0-2 - /LPF * Examination: ???General Examination: ?GENERAL APPEARANCE:?well developed, well nourished, in no acute distress.?HEAD:?normocephalic, atraumatic.?EYES:?pupils equal, round, reactive to light and accommodation, sclera non-icteric.?EARS:?normal.?ORAL CAVITY:?mucosa moist.?THROAT:?clear.?NECK/THYROID:?neck supple, full range of motion, no cervical lymphadenopathy, no bruits.?SKIN:?warm and dry, no suspicious lesions.?HEART:?regular rate and rhythm, S1, S2 normal, no murmurs.?LUNGS:?clear to auscultation bilaterally.?ABDOMEN:?soft, nontender, nondistended, bowel sounds present, normal, no organomegaly , no masses palpable.?RECTAL EXAM:?declined.?MALE GENITOURINARY:?declined.?EXTREMITIES:?no clubbing, cyanosis, or edema.?NEUROLOGIC:?nonfocal, motor strength normal upper and lower extremities, sensory exam intact.? 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 Notes: needs colonoscopy 2024.?? 3.?Prediabetes? Notes: stable, no need for medicatio at this time.?? 4.?Depression screening? Notes: negative screen.?? * Procedure Codes:? * Preventive Medicine:? ??Counseling:?Care goal follow-up plan:?Counseling for abnormal BMI provided?Yes,?Above Normal BMI Follow-up?Giving encouragement to exercise.? * Follow Up:?oct 2024 after * * Sign off status: Completed true * Provider:?David Petersen MD Date:?10/24/2022 Generated for Agustina elliott/Han/Maggieitting on:?11/15/2024 12:51 PM EST History and Physical Notes * HPI (History of Present Illness) Category Sub-Category Detail Notes Category Not es Symptom(s) patient is a 68 yo male here for annual visit with reiew of recent labs abd follow up of chronic issues. Depression Screening PHQ-9 Little inte rest or pleasure in doing things: Not at all Feeling down, depressed, or hopeless: No t at all Trouble falling or staying asleep, or sl eeping too much: Not at all Feeling tired or having little energy: N ot at all Poor appetite or overeating: Not at all Feeling bad about yourself o r that you are a failure, or have let yourself or your family down: Not at all Trouble concentrating on thi ngs, such as reading the newspaper or watching television: Not at all Moving or speaking so slowly that other people could have noticed; or the opposite, being so fidgety or restless that you have been moving around a lot more than usual: Not at all Thoughts that you would be b bridget off or of hurting yourself in some way: Not at all Total Score: 0 Interpretation and Intervention Depression Rudy ortega Findings: Negative Follow-Up for Depression: : review of PH Q-9 found negative result, no follow-up needed SDOH Questions SDOH Questions In the past year have you been worried about losing housing?: No In the past year have you or any family members you live with been unable to get any of the following when it was really needed? Check all that apply:: None Fall Risk History Have you had any falls with injury i n the past year?: No Have you had two or more falls in the year?: No Communication Needs Communication Needs Does the patient have a hearing impairment: Yes ?If yes, what is the hearing impairment? : Hard of hearing, Hearing Aids Does the patient have a vision impairmen t?: Yes ?If yes, what is the vision impairment?: Glasses Does the patient have a cognition impair ment?: No Examination Category Sub-Category Detail Notes Category Not es General Examination GENERAL APPEARANCE: well dev eloped, well nourished, in no acute distress HEAD: normocephalic, atrau matic EYES: pupils equal, round, reactive to light and accommodation, sclera non- icteric EARS: normal THROAT: clear NECK/THYROID: neck supple, full ra nge of motion, no cervical lymphadenopathy, no bruits HEART: regular rate and rhy thm, S1, S2 normal, no murmurs LUNGS: clear to auscultatio n bilaterally ABDOMEN: soft, nontender, non distended, bowel sounds present, normal, no organomegaly , no masses palpable NEUROLOGIC: nonfocal, motor stre ngth normal upper and lower extremities, sensory exam intact SKIN: warm and dry, no elida picious lesions EXTREMITIES: no clubbing, cyanosi s, or edema MALE GENITOURINARY: declined RECTAL EXAM: declined ORAL CAVITY: mucosa moist
[2024-11-15 13:11] LABS: Microalbum/Creatinine Ratio Ur 3.1 ug/mg cr (<30)
== END 2024-11-15 11:38 | disposition home or self-care (01) ==
LOC: HO.LNP 11:37
PROVIDERS: Visit Provider Internal Medicine
DX: Z00.00 Encounter for general adult medical examination without abnormal findings (principal); R73.03 Prediabetes; Z13.220 Encounter for screening for lipoid disorders; Z12.5 Encounter for screening for malignant neoplasm of prostate
CPT/HCPCS: 80053; 80061; 81001; 82043; 82570; 83036; 84153; 85025

== ENCOUNTER 2025-09-04 07:20 | Day surgery (SDC) | payer MEDICARE, SELFPAY ==
--- NOTE | 2025-09-01 13:49 | P.CONAN_ITS ---
Documented by User: Deborah Black NP 09/01/25 13:49 HPI - Anesthesia Eval Consult details Narrative: 70yo M for Colonoscopy [facility] Past Medical History Medical History Leg fracture, left Sinus bradycardia Skin cancer Surgical History Surgical History H/O colonoscopy Social History Social History Patient Tobacco Use Status: Former Tobacco user Tobacco use type: Cigarette Use of substances other than those prescribed or required for medical reasons: No Are you DNR?: No Advance Directives: No Advance Directives Information Provided: Yes Meds Allergies Allergy/AdvReac Type Severity Reaction Status Date / Time No Known Allergies Allergy Verified 09/01/25 13:28 Assessment and Plan Assessment Anesthesia Assessment: Chart Reviewed Documented by User: Shiraz Humphries MD 09/04/25 08:07 [facility] Past Medical History Medical History Leg fracture, left Sinus bradycardia Skin cancer Functional capacity: independent ambulation Family History Family history of problems with anesthesia: No Surgical History Surgical History H/O colonoscopy History of Problems with Anesthesia: No Social History Social History Patient Tobacco Use Status: Former Tobacco user Tobacco use type: Cigarette Use of substances other than those prescribed or required for medical reasons: No Are you DNR?: No Advance Directives: No Advance Directives Information Provided: Yes Meds Allergies Allergy/AdvReac Type Severity Reaction Status Date / Time No Known Allergies Allergy Verified 09/01/25 13:28 Exam Exam Date and Time: 09/04/2025 Airway Mallampati Class: II TM Dist: >3cm Neck ROM: Full Loose/Missing/Broken Teeth: No Heart: rrr Lungs: cta Other: normal Assessment and Plan Assessment Anesthesia Assessment: Anesthesia Plan Discussed Final Anesthetic Review Family History of Problems with Anesthesia: No History of Problems with Anesthesia: No NPO: Yes ASA Class: I Final Preanesthetic Review: No Changes in Pt Med Stat, Meds/Allgs Chart Reviewe d, Consent Obtained/Reviewed and Anes Risks/Benef Reviewed Patient Risk: Low Procedure Risk: Low Anesthetic Plan Anesthetic Plan: MAC: Disposition: Standard PACU
[2025-09-04 07:54] VITALS: BMI 29.0
[2025-09-04 07:56] VITALS: BP 144/92; PULSE 65; RESP 16; TEMP 36.6; O2SAT 96
[2025-09-04] MEDS: Lactated Ringers 1,000 ML 100 ML IVCONT (08:06)
[2025-09-04 08:21] VITALS: PULSE 56
[2025-09-04 09:47] VITALS: BP 98/63; PULSE 58; RESP 17; TEMP 36.1; O2SAT 92
--- NOTE | 2025-09-04 09:54 | PM.OP ---
Brief Operative Note Date of Service: 09/04/25 Pre-op diagnosis: Screening Post-op diagnosis: other (Rectal mass) Procedure: Colonoscopy to the cecum and TI with biopsies Surgeon: Conor Parrish MD Anesthesia: MAC Was an Second Class Welder used for this Procedure?: No Estimated blood loss (mL): 2.0 Pathology: other (A. Rectal mass) Condition: stable Disposition: PACU
[2025-09-04 09:55] VITALS: BP 99/66; PULSE 62; RESP 12; O2SAT 94
[2025-09-04 10:10] VITALS: BP 108/72; PULSE 57; RESP 13; O2SAT 96
--- NOTE | 2025-09-04 10:35 | OP_ITS ---
DATE OF SERVICE: 09/04/2025 SURGEON: Conor Parrish MD INDICATIONS: The patient presents for followup of personal history of colon polyps and colorectal cancer screening. Full consent has been obtained from him for this, including risks of bleeding and perforation. PREOPERATIVE DIAGNOSIS: POSTOPERATIVE DIAGNOSIS: PROCEDURE PERFORMED: Colonoscopy to the cecum and terminal ileum with biopsies. ESTIMATED BLOOD LOSS: COMPLICATIONS: ANESTHESIA: Medication used, monitored anesthesia care. ASSISTANTS: SPECIMENS: PREOPERATIVE DIAGNOSES: Colorectal cancer screening and personal history of colon polyps. POSTOPERATIVE DIAGNOSES: Colorectal cancer screening and personal history of colon polyps, rectal mass, diverticulosis, and small internal hemorrhoids. DESCRIPTION OF PROCEDURE: The patient was placed in the left lateral decubitus position. The digital rectal exam revealed no abnormalities. The Olympus video pediatric colonoscope was entered into the rectum and advanced easily to the cecum. Once in the cecum, I did identify normal-appearing cecal pouch with appendiceal orifice and a normal-appearing ileocecal valve. The terminal ileum was cannulated and appeared normal. The scope was withdrawn back in the colon. The entire cecum and ileocecal valve appeared normal. The scope was slowly withdrawn assessing all mucosal surfaces carefully. Preparation was excellent. There was a mild amount of sigmoid diverticulosis. I did not visualize any sign of colitis nor angiodysplasia. There were no polyps visualized However, a rectal mass was seen on the posterior wall, as best I could tell, and encompassed approximately 50% of the circumference of the rectum. This was definitely polypoid with some areas of ulceration and friability. Parts of it were consistent with a carpet-type lesion as well. Overall, I did not think it was amenable to endoscopic resection.I felt this would require either a surgical transanal excision or possible resection of the lesion itself. I did obtain multiple biopsies from it, and again the tissue was friable and at times came off in chunks. The scope was retroflexed visualizing at least 2 or 3 cm of normal rectum. Multiple photographs were taken. The scope was withdrawn from the patient. He tolerated the procedure well and was returned to the recovery area in stable condition. IMPRESSION: 1. Rectal mass. 2. Diverticulosis. 3. Small internal hemorrhoids. PLAN: The results of the biopsies will be checked. He will require surgical referral even if the tissue does not come back as carcinoma. Given the size of the lesion, he may very well have other areas with carcinoma that were simply not biopsied today. This has all been discussed with the patient and his today. MD REJI Ray/SWEETIE / [id number] MTDD
== END 2025-09-04 10:58 | disposition home or self-care (01) ==
PROVIDERS: Visit Provider Internal Medicine
PROC: 0DJD8ZZ Inspection of Lower Intestinal Tract, Via Natural or Artificial Opening Endoscopic (ICD-10-PCS; CPT 45378; principal; 2025-09-04 08:30)
DX: Z12.11 Encounter for screening for malignant neoplasm of colon (principal); Z86.0101 Personal history of adenomatous and serrated colon polyps; Z80.0 Family history of malignant neoplasm of digestive organs; K63.5 Polyp of colon; K57.30 Diverticulosis of large intestine without perforation or abscess without bleeding; K64.8 Other hemorrhoids; D12.8 Benign neoplasm of rectum
CPT/HCPCS: 45380; 88305; J2003; J2704

== ENCOUNTER 2025-09-18 13:15 | Outpatient (AMB) | payer MEDICARE, SELFPAY ==
--- OUTSIDE RECORDS SUMMARY | 2025-09-04 03:30 | XMS_ITS ---
Author Organization [facility] Address [address] [place] [id number] Care Team Providers Care Agile Tester Name Role Phone NONE, NONE Primary Care Provider Conor Swain [phone] REASON FOR VISIT screening,hx adenomatous polyp colon, fam hx colon ca,tubulovillous adenoma colon Encounters Encounter Location Date Provider Diagnosis [facility] Outpatient [address] [place] [phone] 09/04/2025 Conor Parrish Plan Of Treatment No Information Progress Notes * UNRULY SCALESDOB:1955 (70 yo M)Acc No.[id number]:09/04/2025 COLON WITH MAC Patient: UNRULY LEVIN Provider: Sang Parrish MD :1955 A ge:70 Y S ex:Male Date:09/04/2025 Address:[address] [place], [place] [phone] Subjective: * Chief Complaints: * S creening,hx adenomatous polyp colon, fam hx colon ca,tubulovillous adenoma colon Billing Information: * Procedure Codes: * The named appointment provid er may or may not be the originator of this progress note, and it is not deemed complete until electronically signed by the appointment provider. Sign off status: Pending * Provider: Sang Parrish MD Date: 11/05/2024 Generated for Tariki ng/Fajessikag/eTransmitting on: 11/19/2024 04:38 PM EST
--- OUTSIDE RECORDS SUMMARY | 2025-09-14 14:35 | XMS_ITS | Encounter Summary ---
Author Organization [facility] Address [address] [place] [address] Care Team Providers Care Scorekeeper Name Role Phone David Petersen MD Primary Care Provider Encounter Details Date Type Department Care Team (Late st Contact Info) Description 09/14/2025 2:35 PM EST Lab Draw Station - [address] [phone] Actinic dermatitis (Primary Dx) Social History Tobacco Use Types Packs/Day Years Used Date Smoking Tobacco: Former Smokeless Tobacco: Never Alcohol Use Standard Drinks/Week Comments Yes 0 (1 standard drink = 0.6 oz pur e alcohol) Sex and Gender Information Value Date Recorded Sex Assigned at Not on file Legal Sex Male 3:36 PM EST Gender Identity Not on file Sexual Orientation Not on file documented as of this encounter Plan of Treatment Pending Results Name Type Priority Associated Diagnoses Date /Time Vitamin D 1,25 dihydroxy Lab Routine Actinic dermatitis 09/14/2025 2:36 PM EST Scheduled Orders Name Type Priority Associated Diagnoses Orde r Schedule Vitamin D 1,25 dihydroxy Lab Routine Actinic dermatitis 1 Occurrences starting 09/14/2025 until 09/14/2026 documented as of this encounter Procedures Procedure Name Priority Date/Time Associated Diagnosis Comments VITAMIN D 25 HYDROXY Routine 09/14/2025 2:36 PM EST Actinic dermatitis documented in this encounter Results * Vitamin D 25 hydroxy (09/14/2025 2:36 PM EST) Vit D, 25-Hydroxy 31.4 30.0 - 80.0 ng/mL 09/14/2025 5:54 PM EST [facility] Blood Venous blood specimen / Unknown Venipuncture / Unknown 09/14/2025 2:36 PM EST 09/14/2025 4:24 PM EST Sara GOMEZ LAB BLOOD ORDERABLES Liana tiffanie Result [facility] [address] [place] [address], documented in this encounter Visit Diagnoses Diagnosis Actinic dermatitis- Primary Unspecified dermatitis due to sun documented in this encounter Care Teams Scorekeeper Relationship Specialty Start Date End Date David Petersen MD PCP - General Internal Medicine 10/14/16 documented as of this encounter
--- NOTE | 2025-09-18 13:25 | MHC.OFFVIS ---
Vital Signs 09/18/25 13:34 Height 5 ft 10 in Weight 206 lb BMI 29.6 BP 157/84 H Blood Pressure Location Rt brachial Position Sitting Pulse 65 Intake Visit Reasons: large rectal lesion Intake Note: Patient was referred by Dr. Parrish for an assessment for large rectal lesion. Pt c/o; denies bleeding, no pain. Hx of rectal mass in 2020. Hx of adenomas. 09/04/2025: Dr. Parrish- Colonoscopy Software Systems Architect Required: No Accompanied by: Self / Same As Patient Allergies No Known Allergies Allergy (Verified 09/18/25 13:33) Medication List - Last Reconciled 09/18/25 by Sebastian Shepherd MD No Known Home Meds HPI HPI large rectal lesion: Details: 70-year-old male referred for a large rectal polyp. He had undergone a colonoscopy with Dr. Parrish last 09/04/2025. He was found to have large polyp in the low rectum. 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 He says that he had been undergoing anoscopy with Dr. Fernandes in [place] for many years. He has had this rectal polyp from before and his last colonoscopy was in 2022. Again, at that time, the polyp seen and was removed and this was also a tubulovillous adenoma with high-grade dysplasia. He said that at that time he was told to have another colonoscopy in 5 years but the patient stated that he was not comfortable with waiting for 5 years so he saw Dr. Parrish for an earlier colonoscopy He denies any rectal bleeding. Denies any GI complaints. Denies any this has in his bowel habits. Denies any family history of colon cancer. [facility] Medical History (Updated 09/18/25 @ 13:45 by Sebastian Shepherd MD) Rectal polyp Leg fracture, left Sinus bradycardia Skin cancer Surgical History H/O colonoscopy (~09/04/25) Social History Patient Tobacco Use Status: Former Tobacco user Tobacco use type: Cigarette Review of Systems Const Denies chills and Denies fever(s) Card Denies chest pain, Denies dyspnea and Denies dyspnea on exertion Resp Denies cough, Denies dyspnea and Denies dyspnea on exertion GI Denies hematochezia and Denies change in bowel habits Denies hematuria and Denies difficulty urinating Musc Denies back pain and Denies limited range of motion Neuro Denies focal weakness and Denies convulsions Psych Denies depression and Denies mood swings Physical Exam Vital Signs: Last Vital Signs Pulse 65 09/18/25 13:34 BP 157/84 H 09/18/25 13:34 BMI result Body Mass Index 29.6 Const General: comfortable and no acute distress Orientation/consciousness: patient oriented x3 Neck Neck: Yes no lymphadenopathy Resp Auscultation: clear to auscultation bilaterally Cardio Rhythm: regular rhythm GI Other: Rectal exam shows some external hemorrhoids Palpation (GI): Soft to palpation, nontender and no guarding Neuro General: patient oriented x3 Office Procedures Anoscopy He was in kneeling jennifer-knife position. The anoscope was gently inserted a full examination of the entire anal canal was done. He had large internal external hemorrhoids. However I did not see any polyp or any mass within reach of the anoscope. There was no fissure, ulceration or any bleeding. Digital exam does not reveal any palpable mass or any induration. [id number] Assessment & Plan Assessment & Plan (1) Rectal polyp: Code(s): K62.1 - Rectal polyp Category: Medical Plan: He has a large rectal polyp on colonoscopy done by Dr. Parrish. I am unable to see this are appreciate this with anoscopy. I will schedule him for a flexible sigmoidoscopy to visualize this rectal polyp. This was allow us to see how far this is from the anus. We will also have a better idea of how large this polyp is and 2 determine next step in his care I explained to him what a flexible sigmoidoscopy this. I also reviewed with him the risks, benefits and alternatives. He understands and agrees to proceed. Orders: Referrals General Surgery Procedure Notification K62.1 - Rectal polyp Coding Level of Care Code New Pt Level 3 (76567) Diagnoses Rectal polyp K62.1 CPT Codes Details - CPT: 27448-[id number] ([id number])
[2025-09-18 13:34] VITALS: BP 157/84; PULSE 65; BMI 29.6
--- OUTSIDE RECORDS SUMMARY | 2025-09-18 16:39 | XMS_ITS | Clinical Summary ---
Author Organization [facility] Address [address] [place] [address] Phone Care Team Providers Care Plastic Straightening Roll Operator Name Role Phone David Petersen MD Primary Care Provider Encounters Date Type Department Care Team Description 09/14/2025 2:35 PM EST Lab Draw Station - [facility] [address] [place] [address] Actinic dermatitis (Primary Dx) from Last 3 Months Surgical History Surgery Date Site/Laterality Comments COLONOSCOPY 11/05/2016 PROCEDURE: HISTORICAL COLONOSCOPY; COMMENT: tubulovillous adenoma COLONOSCOPY 05/14/2022 PROCEDURE: HISTORICAL COLONOSCOPY; COMMENT: 2 cm rectal polyp removed piecemeal/HGD noted. diverticulosis. Medical History Medical History Date Comments History of basal cell carcinoma 12/04/2016 DX:History of basal cell carcinoma History of actinic keratoses 12/04/2016 DX: History of actinic keratoses Colon polyp 12/04/2016 DX:Colon polyp History of melanoma in situ DX:H istory of melanoma in situ Social History Tobacco Use Types Packs/Day Years Used Date Smoking Tobacco: Former Smokeless Tobacco: Never Alcohol Use Standard Drinks/Week Comments Yes 0 (1 standard drink = 0.6 oz pur e alcohol) Sex and Gender Information Value Date Recorded Sex Assigned at Not on file Legal Sex Male 3:36 PM EST Gender Identity Not on file Sexual Orientation Not on file Plan of Treatment Health Maintenance Due Date Last Done Comments DTaP,Tdap,and Td Vaccines (1 - Tdap) 1974 Pneumococcal Vaccine: 50+ Years (1 of 1 - PCV) 2005 Zoster Vaccines (1 of 2) 2005 Abdominal Aortic Aneurysm (AAA) Screen 09/06/2022 Cholesterol Screening (Lipid Panel) 09/06/2022 Colorectal Cancer Screening: Stool Based Tests (FOBT/FIT) 09/06/2022 Falls Risk Assessment 09/06/2022 Hepatitis C Screening 09/06/2022 Social Influencers of Health Screening 09/06/2022 Depression Screening 09/28/2024 COVID-19 Vaccine ( - 2024- season) 2025 08/07/2025, 07/23/2022, 07/04/2021, Additional history exists Influenza Vaccine (#1) 2025 , 07/23/2022, 09/11/2021, Additional history exists RSV Immunization Adult Patients (1 - 1-dose 75+ series) 2030 HIB Vaccines Aged Out No longer eligi ble based on patient's age to complete this topic HPV Vaccines Aged Out No longer eligi ble based on patient's age to complete this topic Hepatitis A Vaccines Aged Out No long er eligible based on patient's age to complete this topic Hepatitis B Vaccines Aged Out No long er eligible based on patient's age to complete this topic IPV Vaccines Aged Out No longer eligi ble based on patient's age to complete this topic MMR Vaccines Aged Out No longer eligi ble based on patient's age to complete this topic Meningococcal ACWY Vaccine Aged Out N o longer eligible based on patient's age to complete this topic Meningococcal B Vaccine Aged Out No l onger eligible based on patient's age to complete this topic RSV Immunization Patients Under 20 months Aged Out No longer eligible based on patient's age to complete this topic Varicella Vaccines Aged Out No longer eligible based on patient's age to complete this topic Procedures Procedure Name Priority Date/Time Associated Diagnosis Comments VITAMIN D 25 HYDROXY Routine 09/14/2025 2:36 PM EST Actinic dermatitis from Last 3 Months Results * Vitamin D 25 hydroxy (09/14/2025 2:36 PM EST) Vit D, 25-Hydroxy 31.4 30.0 - 80.0 ng/mL 09/14/2025 5:54 PM EST [facility] Blood Venous blood specimen / Unknown Venipuncture / Unknown 09/14/2025 2:36 PM EST 09/14/2025 4:24 PM EST us Sara GOMEZ LAB BLOOD ORDERABLES Liana moreno Result [facility] [address] [place] [address], from Last 3 Months Care Teams Plastic Straightening Roll Operator Relationship Specialty Start Date End Date David Petersen MD PCP - General Internal Medicine 10/14/16
--- OUTSIDE RECORDS SUMMARY | 2025-09-18 16:39 | XMS_ITS | Patient Health Record ---
Author Organization [facility] Address [address] [place] [address] Care Team Providers Care Branch Maker Name Role Phone NONE, NONE Primary Care Provider Conor Swain Unavailable [phone] Allergies No Known Allergies Results Component Value Reference Range Notes Pathology (Not yet reviewed by provider) Interpretation: Performing Lab:[facility], [address] [place] [id number] Notes/Report: Reason For Referral No Information Immunizations Vaccine Route Administration Date Status Comme nts Influenza Unknown 04/06/2025 Refused Social History Tobacco Use: Social History Observation Description Date Details (start date - stop date) Never Smoker NA - NA Social History Drug/Alcohol: Social Info Question Answer Notes AUDIT-C (Standard) Did you have a drink containing alcohol in the past year? Yes How often did you have a drink containing alcohol in the past year? 2 to 3 times a week (3 points) How many drinks did you have on a typical day when you were drinking in the past year? 3 or 4 drinks (1 point) How often did you have six or more drinks on one occasion in the past year? Never (0 point) Points 4 Interpretation Positive Tobacco Use: Social Info Question Answer Notes Tobacco Control (Standard) Tobacco use: Nonsmoker Additional Details Category Social Info Options Details Miscellaneous: Marital status: Occupation: retired Problems Problem Type SNOMED Code ICD Code Onset Dates Problem Status W/U Status Risk Notes Problem Colon cancer screening (282904992) Colon cancer screening (Z12.11) Active confirmed Problem Preprocedural examination (675522097247568) Preprocedural examination (Z01.818) Active confirmed Problem Family History of Cancer of Colon (Situation) (665186349) Family history of colon cancer (Z80.0) Active confirmed Problem Tubulovillous adenoma of colon (9225834795) Tubulovillous adenoma of colon (K63.5) Active confirmed Problem History of adenomatous polyp of colon (044502381) History of adenomatous polyp of colon (Z86.0101) Active confirmed Vital Signs Temperature 97.6 degrees Fahrenheit 04/06/2025 Blood pressure diastolic 01 mm Hg 04/06/2025 Height 70 in 04/06/2025 Blood pressure systolic 001 mm Hg 04/06/2025 Weight 200.6 lbs 04/06/2025 BMI 28.78 kg/m2 04/06/2025 Procedures Procedure Date Ordered Date Performed Result Body Sit e COLONOSCOPY 04/06/2025 N/A Encounters Encounter Location Date Provider Diagnosis [facility] [address] [place] [address] [id number] 09/04/2025 Conor Parrish [facility] [address] [place] [phone] 04/06/2025 Conor Parrish History of adenomato us polyp of colon Z86.0101 ; Preprocedural examination Z01.818 ; Tubulovillous adenoma of colon K63.5 ; Colon cancer screening Z12.11 and Family history of colon cancer Z80.0 [facility] [address] [place] [phone] 04/06/2025 Conor Parrish [facility] [address] [place] [phone] 09/12/2025 Conor Parrish Assessments Encounter Date Diagnosis (ICD Code) Assessment Notes Treatment Notes Treatment Clinical Notes Section Notes 04/06/2025 Preprocedural examination (ICD-10 - Z01.818) Overall, Daniel appears quite well and is not having any new or worrisome GI complaints. We did have a detailed discussion today regarding his 3 previous colonoscopies. I advised him that given those findings, particularly on the first 2, and his family history of colon cancer, this does place him at a higher than average risk of colorectal cancer. As such, I would not wait the full 5 years for his next surveillance colonoscopy. I advised him that I would recommend a another colonoscopy within 3 years of the most recent one. However, as you know, he is quite worried about the whole situation and as such we have compromised on his undergoing a colonoscopy this August as that will be approximately 2-1/2 years since the most recent one in April 2023. We did review the rationale for this in regard to colorectal cancer prevention and/or early detection. Full consent has been obtained from him for the colonoscopy, including risks of bleeding and perforation. The procedure will be done with monitored anesthesia care. Daniel was very comfortable with this plan. Thank you again for allowing me to participate in Daniel's care. I shall continue to keep you advised of his progress. 04/06/2025 History of adenomatous polyp of colon (ICD-10 - Z86.0101) Overall, Daniel appears quite well and is not having any new or worrisome GI complaints. We did have a detailed discussion today regarding his 3 previous colonoscopies. I advised him that given those findings, particularly on the first 2, and his family history of colon cancer, this does place him at a higher than average risk of colorectal cancer. As such, I would not wait the full 5 years for his next surveillance colonoscopy. I advised him that I would recommend a another colonoscopy within 3 years of the most recent one. However, as you know, he is quite worried about the whole situation and as such we have compromised on his undergoing a colonoscopy this August as that will be approximately 2-1/2 years since the most recent one in April 2023. We did review the rationale for this in regard to colorectal cancer prevention and/or early detection. Full consent has been obtained from him for the colonoscopy, including risks of bleeding and perforation. The procedure will be done with monitored anesthesia care. Dainel was very comfortable with this plan. Thank you again for allowing me to participate in Daniel's care. I shall continue to keep you advised of his progress. 04/06/2025 Tubulovillous adenoma of colon (ICD-10 - K63.5) Overall, Daniel appears quite well and is not having any new or worrisome GI complaints. We did have a detailed discussion today regarding his 3 previous colonoscopies. I advised him that given those findings, particularly on the first 2, and his family history of colon cancer, this does place him at a higher than average risk of colorectal cancer. As such, I would not wait the full 5 years for his next surveillance colonoscopy. I advised him that I would recommend a another colonoscopy within 3 years of the most recent one. However, as you know, he is quite worried about the whole situation and as such we have compromised on his undergoing a colonoscopy this August as that will be approximately 2-1/2 years since the most recent one in April 2023. We did review the rationale for this in regard to colorectal cancer prevention and/or early detection. Full consent has been obtained from him for the colonoscopy, including risks of bleeding and perforation. The procedure will be done with monitored anesthesia care. Daniel was very comfortable with this plan. Thank you again for allowing me to participate in Daniel's care. I shall continue to keep you advised of his progress. 04/06/2025 Colon cancer screening (ICD-10 - Z12.11) Overall, Daniel appears quite well and is not having any new or worrisome GI complaints. We did have a detailed discussion today regarding his 3 previous colonoscopies. I advised him that given those findings, particularly on the first 2, and his family history of colon cancer, this does place him at a higher than average risk of colorectal cancer. As such, I would not wait the full 5 years for his next surveillance colonoscopy. I advised him that I would recommend a another colonoscopy within 3 years of the most recent one. However, as you know, he is quite worried about the whole situation and as such we have compromised on his undergoing a colonoscopy this August as that will be approximately 2-1/2 years since the most recent one in April 2023. We did review the rationale for this in regard to colorectal cancer prevention and/or early detection. Full consent has been obtained from him for the colonoscopy, including risks of bleeding and perforation. The procedure will be done with monitored anesthesia care. Daniel was very comfortable with this plan. Thank you again for allowing me to participate in Daniel's care. I shall continue to keep you advised of his progress. 04/06/2025 Family history of colon cancer (ICD-10 - Z80.0) Overall, Daniel appears quite well and is not having any new or worrisome GI complaints. We did have a detailed discussion today regarding his 3 previous colonoscopies. I advised him that given those findings, particularly on the first 2, and his family history of colon cancer, this does place him at a higher than average risk of colorectal cancer. As such, I would not wait the full 5 years for his next surveillance colonoscopy. I advised him that I would recommend a another colonoscopy within 3 years of the most recent one. However, as you know, he is quite worried about the whole situation and as such we have compromised on his undergoing a colonoscopy this August as that will be approximately 2-1/2 years since the most recent one in April 2023. We did review the rationale for this in regard to colorectal cancer prevention and/or early detection. Full consent has been obtained from him for the colonoscopy, including risks of bleeding and perforation. The procedure will be done with monitored anesthesia care. Daniel was very comfortable with this plan. Thank you again for allowing me to participate in Daniel's care. I shall continue to keep you advised of his progress. Plan Of Treatment Pending Test Test Name Order Date COLONOSCOPY 04/06/2025 Pathology 09/04/2025 Insurance Providers Payer Name Payer Address Payer Phone Subscriber Number Group Number Insured Name Patient Relationship to Insured Coverage Start Date Coverage End Date [facility] [employer] [address] [address] [place] [address] [id number] SCALESUNRULY LAWRENCE Self - patient is the insured [facility] [employer] [address] [place] [address] [id number] UNRULY SCALES Self - patient is the insured 0 Medical (General) History Medical History History ICD Code Denies WA,DM,CVA,Lung disease,renal dise ase Colon polyps- tubulovillous adenoma removed in 2016 and a 3 cm rectal polyp removed in 2021 and shown to be a tubular adenoma with extensive high-grade dysplasia with Dr. Barajas at [facility], and a tubular adenoma removed on a follow-up colonoscopy in [address] Saldana at [facility] Surgical History Surgery Date(Month/Year) Skin cancers removed- -in-situ melanoma, basal cells
== END 2025-09-18 13:59 | disposition home or self-care (01) ==
LOC: HO.HGS 13:16
PROVIDERS: PCP Internal Medicine; Visit Provider Surgery
DX: K62.1 Rectal polyp (principal)
CPT/HCPCS: 99203

== ENCOUNTER → 2025-09-18 13:15 | Outpatient (BNVA) | payer MEDICARE, SELFPAY | PROVIDERS: PCP Internal Medicine; Visit Provider Surgery | DX: D12.8 Benign neoplasm of rectum (principal); K64.8 Other hemorrhoids; K64.4 Residual hemorrhoidal skin tags; Z98.890 Other specified postprocedural states | CPT/HCPCS: 46600; 99202 ==